=== PATIENT | female | born 1965 | race Caucasian/White ===

== ENCOUNTER 2022-05-24 21:29 | Emergency (ER) | payer SELFPAY ==
[~2022-05-24] VITALS: Ht 157.5 cm; Wt 82.0 kg
[~2022-05-24 21:29] MED LIST: IBUP-2778 PO; TOPUD PO
[2022-05-24] MEDS ORDERED: LORAZEPAM 0.5MG TABLET PO ONE (21:45)
[2022-05-24 23:00] VITALS: BP 143/86
== END 2022-05-24 23:10 | disposition home or self-care (01) ==
LOC: ER 21:44
DX: R00.2 Palpitations (principal); I10 Essential (primary) hypertension; Z90.49 Acquired absence of other specified parts of digestive tract; Z98.890 Other specified postprocedural states; Z88.5 Allergy status to narcotic agent
CPT/HCPCS: 93005; 99283